=== PATIENT | female | born 1965 | race Caucasian/White ===

== ENCOUNTER 2021-12-02 08:16 | Outpatient (REF) | payer MEDICARE, OTHER, SELFPAY ==
--- NOTE | ~2021-12-02 | XR_ITS ---
EXAMINATION: BILATERAL HIP X-RAY CLINICAL INFORMATION: Pain COMPARISON: None TECHNIQUE: 2 views of each hip FINDINGS: Right: Bone alignment is normal. No fracture or dislocation is seen. The joint space is normal. Soft tissues are normal. Left: Bone alignment is normal. No fracture or dislocation is seen. The joint space is normal. There is an osteophyte projecting off the of the left greater trochanter. XR/XR hips SORAYA min 3V IMPRESSION: Left greater trochanter osteophyte otherwise unremarkable exam. EXAMINATION: Lumbar spine x-ray CLINICAL INFORMATION: Low back pain COMPARISON: None. TECHNIQUE: 5 views of the lumbar spine including bilateral oblique views FINDINGS: There may be a transitional vertebral body segment or lumbarization of S1. Bone alignment is normal. No fracture or dislocation is seen. There is multilevel degenerative spondylosis. There is degenerative disc disease at L4-L5. There is multilevel facet arthritis. No pars defect is seen. IMPRESSION: Multilevel degenerative changes.
--- NOTE | ~2021-12-02 | XR_ITS ---
EXAMINATION: BILATERAL HIP X-RAY CLINICAL INFORMATION: Pain COMPARISON: None TECHNIQUE: 2 views of each hip FINDINGS: Right: Bone alignment is normal. No fracture or dislocation is seen. The joint space is normal. Soft tissues are normal. Left: Bone alignment is normal. No fracture or dislocation is seen. The joint space is normal. There is an osteophyte projecting off the of the left greater trochanter. XR/XR lumbar spine 4V min IMPRESSION: Left greater trochanter osteophyte otherwise unremarkable exam. EXAMINATION: Lumbar spine x-ray CLINICAL INFORMATION: Low back pain COMPARISON: None. TECHNIQUE: 5 views of the lumbar spine including bilateral oblique views FINDINGS: There may be a transitional vertebral body segment or lumbarization of S1. Bone alignment is normal. No fracture or dislocation is seen. There is multilevel degenerative spondylosis. There is degenerative disc disease at L4-L5. There is multilevel facet arthritis. No pars defect is seen. IMPRESSION: Multilevel degenerative changes.
--- NOTE | ~2021-12-02 | CT_ITS ---
EXAMINATION: CT HEAD WITHOUT CONTRAST CLINICAL INFORMATION: Visual disturbance. History of head trauma. COMPARISON: No relevant prior imaging. TECHNIQUE: Contiguous axial imaging was performed from the skull base to vertex without intravenous administration of contrast. This CT examination was performed using dose optimization techniques as appropriate, variously including the following: *Automated exposure control *Adjustment of mA and/or kV according to patient size (this includes techniques or standardized protocols for targeted exams where dose is matched to indication/reason for exam; i.e. extremities or head) *Use of iterative reconstruction technique DLP: 912 mGy-cm FINDINGS: There is no acute intracranial hemorrhage or abnormal extra-axial collection. No intracranial mass effect or midline shift. Lateral and third ventricles are normal. No hydrocephalus. Cordoba-white matter differentiation is preserved and there is no evidence of acute territorial infarct. The calvarium and skull base are intact. Mastoid air cells and middle ear cavities are well aerated. There is a retention cyst within the alveolar recess of the right maxillary sinus. Otherwise no active paranasal sinus disease. Globes and orbits are grossly symmetric. CT/CT head/brain wo con IMPRESSION: Unremarkable CT scan of the head. No evidence of acute territorial infarct or hemorrhage.
== END 2021-12-02 08:17 | disposition home or self-care (01) ==
LOC: HO.CT 08:16
PROVIDERS: PCP Internal Medicine; Visit Provider Nurse Practitioner Family
DX: M54.50 Low back pain, unspecified (principal); M25.551 Pain in right hip; H53.9 Unspecified visual disturbance
CPT/HCPCS: 70450; 72110; 73522

== ENCOUNTER 2021-12-14 05:59 | Outpatient (REF) | payer MEDICARE, SELFPAY ==
[2021-12-14 06:16] LABS: MANUAL DIFF FLAG NO
[2021-12-14 07:25] LABS: Basophils Percent Auto 0.2 % (0-2); Hematocrit 49.9 % (37.0-47.0); Hemoglobin 16.2 g/dl (12.0-16.0); Imm Gran Abs Auto 0.03 X10*3/uL (0.00-0.03); Imm Gran Pct Auto 0.6 % (0.0-0.4); Lymphocytes Absolute Auto 0.8 X10*3/uL (1.2-4.9); Lymphocytes Percent Auto 16.3 % (20-40); Mean Corpuscular HGB Conc 32.5 g/dl (31.0-35.0); Mean Corpuscular Hemoglobin 29.1 pg (27.0-33.0); Mean Corpuscular Volume 89.6 fL (80.0-98.0); Mean Platelet Volume 9.2 fL (9.4-12.3); Monocytes Absolute Auto 0.4 X10*3/uL (0.1-1.2); Monocytes Percent Auto 6.9 % (2-11); Neutrophils Absolute Auto 3.8 x10*3/uL (2.0-8.3); Platelet Count 201 X10*3/uL (160-400); Red Blood Count 5.57 X10*6/uL (4.20-5.50)
[2021-12-14 07:49] LABS: Alanine Aminotransferase 31 U/L (0-31); Albumin Level 4.3 g/dL (3.5-5.0); Alkaline Phosphatase 117 U/L (39-117); Anion Gap 12 (12-20); Aspartate Amino Transferase 24 U/L (5-31); Bilirubin Total 0.3 mg/dL (0.0-1.0); Blood Urea Nitrogen 14 mg/dL (9-16); Calcium 9.3 mg/dL (8.4-10.2); Carbon Dioxide 29 mmol/L (22-29); Chloride 106 mmol/L (96-108); Cholesterol 199 mg/dL; Estimated Glomerular Filt Rate > 60; Glucose Fasting 99 mg/dL (60-99); HDL Cholesterol 38 mg/dL; LDL Cholesterol Calculated 107 mg/dl; Potassium 4.3 mmol/L (3.3-5.1); Sodium 143 mmol/L (135-145); Triglycerides 273 mg/dL
[2021-12-14 08:11] LABS: TSH reflex Free T4 1.11 uIU/mL (0.32-4.0); Vitamin D 25-OH Total 36.3 ng/mL (>30)
[2021-12-14 09:03] LABS: Folate 17.4 ng/mL (> or = 4.0); Vitamin B12 677 pg/mL (200-900)
== END 2021-12-14 06:00 | disposition home or self-care (01) ==
LOC: HO.LAB 05:59
PROVIDERS: PCP Internal Medicine; Visit Provider Nurse Practitioner Family
DX: Z13.220 Encounter for screening for lipoid disorders (principal); Z13.1 Encounter for screening for diabetes mellitus; E03.9 Hypothyroidism, unspecified; Z76.89 Persons encountering health services in other specified circumstances
CPT/HCPCS: 36415; 80053; 80061; 82306; 82607; 82746; 84443; 85025

== ENCOUNTER 2022-02-15 10:04 | Outpatient (REF) | payer MEDICARE, SELFPAY ==
--- NOTE | ~2022-02-15 | MM_ITS ---
EXAMINATION: MM SCREENING DIGITAL BREAST TOMOSYNTHESIS, BILATERAL CLINICAL INFORMATION: Screening. Asymptomatic. Prior [facility] mammography currently unavailable. Prior history benign left breast biopsies. The lifetime risk of breast cancer based on the Tyrer-Cuzick Model is 5%. COMPARISON: None. TECHNIQUE: Digital breast tomosynthesis is performed in both the craniocaudal and mediolateral oblique views along with computer-aided detection (CAD). Synthesized 2D images are generated from the tomosynthesis. FINDINGS: There are scattered areas of fibroglandular density (ACR BI-RADS breast composition Category b). There is biopsy clip marker posterior left breast along the posterior nipple line. Surgical clips are also present central lower left breast. There are bilateral nipple piercings. There is no significant mass or architectural abnormality. Left breast has small smooth circumscribed nodularity central 3:00 position mid depth likely fibrocystic changes. Right breast has intramammary node mid 3:00 position. The axilla and skin contours are unremarkable. Radiology department staff will attempt to retrieve prior [facility] mammography to allow for comparison in an addendum report. MM/MM tomosynthesis screening BI IMPRESSION: No mammographic evidence of malignancy. ASSESSMENT: BI-RADS 0: Incomplete - Need Additional Imaging Evaluation RECOMMENDATION: -Radiology department staff will attempt to retrieve outside prior exam(s) to allow for comparison in an addendum report. This patient's information was entered into a reminder system with a target due date for their next mammogram.
== END 2022-02-15 10:05 | disposition home or self-care (01) ==
LOC: HO.MAMMO 10:04
PROVIDERS: PCP Internal Medicine; Visit Provider Internal Medicine
DX: Z12.31 Encounter for screening mammogram for malignant neoplasm of breast (principal)
CPT/HCPCS: 77063; 77067

== ENCOUNTER 2022-03-02 06:02 | Outpatient (REF) | payer MEDICARE, MEDICAID, SELFPAY ==
--- NOTE | ~2022-03-02 | FL_ITS ---
EXAMINATION: XR FLUOROSCOPY WITH IMAGES CLINICAL INFORMATION: M53.3 - Sacrococcygeal disorders, not elsewhere classified COMPARISON: Lumbar radiographs 12/02/2021 TECHNIQUE: Fluoroscopy performed by Dr. Yuan Talley. Fluoroscopy time: 0.3 minutes. Cumulative Dose: 11.1 mGy. DAP: 3.03 Gy-cm2. Images: 2. FINDINGS: Spinal needles overlies mid to lower bilateral SI joints. There is contrast in the periarticular soft tissues with probable early intra-articular contrast. No vasculature communication appreciated. FL/FL guidance in treatment room IMPRESSION: Fluoroscopy for pain management procedure.
== END 2022-03-02 06:03 | disposition home or self-care (01) ==
LOC: CF 06:02
PROVIDERS: Visit Provider Anesthesiology
DX: M53.3 Sacrococcygeal disorders, not elsewhere classified (principal); M47.816 Spondylosis without myelopathy or radiculopathy, lumbar region; M51.37 Other intervertebral disc degeneration, lumbosacral region; M70.61 Trochanteric bursitis, right hip; M62.838 Other muscle spasm
CPT/HCPCS: 27096; J3300

== ENCOUNTER → 2022-04-05 09:17 | Outpatient (BNVA) | payer MEDICARE, SELFPAY | PROVIDERS: PCP Internal Medicine; Visit Provider Nurse Practitioner Family | DX: M62.838 Other muscle spasm (principal); E66.01 Morbid (severe) obesity due to excess calories; M70.61 Trochanteric bursitis, right hip; M53.3 Sacrococcygeal disorders, not elsewhere classified; M51.37 Other intervertebral disc degeneration, lumbosacral region; Z68.41 Body mass index [BMI] 40.0-44.9, adult | CPT/HCPCS: 99212 ==

== ENCOUNTER 2022-05-18 06:23 | Outpatient (REF) | payer MEDICARE, MEDICAID, SELFPAY | END 2022-05-18 06:24 | disposition home or self-care (01) | LOC: CF 06:23 | PROVIDERS: Visit Provider Anesthesiology | DX: M70.62 Trochanteric bursitis, left hip (principal); M51.37 Other intervertebral disc degeneration, lumbosacral region; M53.3 Sacrococcygeal disorders, not elsewhere classified; M62.838 Other muscle spasm; E66.01 Morbid (severe) obesity due to excess calories; Z68.41 Body mass index [BMI] 40.0-44.9, adult | CPT/HCPCS: 20610; 99212; J2795; J3301 ==

== ENCOUNTER 2022-06-07 10:51 | Outpatient (REF) | payer MEDICARE, MEDICAID, SELFPAY ==
--- NOTE | ~2022-06-07 | US_ITS ---
EXAMINATION: US PELVIS CLINICAL INFORMATION: Postmenopausal bleeding COMPARISON: None TECHNIQUE: Ultrasound of the pelvis is performed using both transabdominal and transvaginal transducers along with Doppler. Transvaginal imaging is performed due to inadequate visualization transabdominally. FINDINGS: Uterus: The uterus is anteverted, anteflexed and measures 7.7 x 4.2 x 5.3 cm The double wall endometrial thickness is 0.6 cm. The uterus is smooth in contour and has normal myometrial echogenicity. No visible fibroid. Adnexa: Both ovaries are visualized. There is normal color flow to the adnexa. There is no ovarian torsion. There is no pelvic ascites or fluid collection. Right ovary measures 2.1 x 1.8 x 1.5 cm and volume 3.0 mL. It appears unremarkable. Left ovary measures 2.7 x 1.5 x 2.1 cm and volume 4.5 mL. It appears unremarkable. There is no free fluid in the cul-de-sac. US/US pelvic and transvaginal IMPRESSION: 1. Unremarkable uterus and ovaries. 2. There is no free fluid in the cul-de-sac.
== END 2022-06-07 10:52 | disposition home or self-care (01) ==
LOC: HO.US 10:51
PROVIDERS: PCP Internal Medicine; Visit Provider Nurse Practitioner Family
DX: N95.0 Postmenopausal bleeding (principal)
CPT/HCPCS: 76830; 76856

== ENCOUNTER → 2022-06-11 08:00 | Outpatient (BNVA) | payer MEDICARE, SELFPAY | PROVIDERS: PCP Internal Medicine; Visit Provider Internal Medicine | DX: M53.3 Sacrococcygeal disorders, not elsewhere classified (principal); G58.8 Other specified mononeuropathies | CPT/HCPCS: 99212 ==

== ENCOUNTER 2022-06-23 07:57 | Outpatient (REF) | payer MEDICARE, MEDICAID, SELFPAY ==
[2022-06-25 17:58] LABS: HPV mRNA E6/E7 rflx Not Detected (Not Detected)
== END 2022-06-23 07:58 | disposition home or self-care (01) ==
LOC: HO.LNP 07:57
PROVIDERS: PCP Internal Medicine; Visit Provider Obstetrics & Gynecology
DX: Z12.4 Encounter for screening for malignant neoplasm of cervix (principal); Z11.51 Encounter for screening for human papillomavirus (HPV); N95.0 Postmenopausal bleeding
CPT/HCPCS: 58100; 87624; 88142; 88305; 99202

== ENCOUNTER → 2022-06-30 12:30 | Outpatient (BNVA) | payer MEDICARE, SELFPAY | PROVIDERS: PCP Internal Medicine; Visit Provider Obstetrics & Gynecology | DX: N95.0 Postmenopausal bleeding (principal) | CPT/HCPCS: 99212 ==

== ENCOUNTER 2022-09-22 10:17 | Day surgery (SDC) | payer MEDICARE, MEDICAID, SELFPAY ==
--- NOTE | ~2022-09-22 | FL_ITS ---
EXAMINATION: XR FLUOROSCOPY WITH IMAGES CLINICAL INFORMATION: Cluneal nerve pns trial COMPARISON: Radiographs lumbar spine and bilateral hip 12/02/2021 TECHNIQUE: Fluoroscopy Supervised By: Dr. Brennen Dietz. Fluoroscopy Time: 0.6 minutes. Cumulative Dose: 21.6 mGy. DAP: 5.09 Gycm2. Images: 4. FINDINGS: There are electrodes seen overlying the bilateral sacral wings, oriented superior to inferior. There is no kinking or defect. Degenerative changes again seen lumbosacral spine. FL/FL guidance in OR IMPRESSION: Fluoroscopy for pain management procedures.
[2022-09-22 10:29] VITALS: BMI 41.8
--- NOTE | 2022-09-22 11:21 | MHC.SHP ---
Pre-Procedural Eval Section A Date of Service: 09/22/22 The patient is an INPATIENT: No Changes since office visit: Yes Patient answered all questions The History & Physical has been completed within 30 days and I have reviewed it.: Yes Section B Chief Complaint: Other specified mononeuropathies Relevant Social History: None Present Medications: see Short Stay Collaborative assessment Medical History: No relevant PMH History of Previous Operations: No relevant previous surgery Allergies: Allergies Allergy/AdvReac Type Severity Reaction Status Date / Time Penicillins Allergy Severe Anaphylaxis Verified 09/22/22 10:39 progesterone AdvReac Severe Depression Verified 09/22/22 10:39 fentanyl Allergy Severe Anaphylaxis Uncoded 06/30/22 12:43 Review of Systems Sugical H&P ROS: Negative: Constitution, Cardiovascular and Respiratory Exam Surgical H&P Exam: Normal: HEENT, Normal: Heart and Normal: Lungs Plan Diagnosis/Plan: Unchanged I have reviewed the history and physical and performed a pertinent physical examination on my patient. No changes have occurred unless specified. Proceed with bilateral medial cluneal nerve PNS trial for medial cluneal neuropathy. Time Spent With Patient Time: Total time managing care of this patient today ____ minutes.
[2022-09-22 12:58] VITALS: BP 114/69; PULSE 90; RESP 18; TEMP 36.4; O2SAT 94
[2022-09-22 13:01] LABS: MRSA Nasal PCR NEGATIVE (Negative); SA Nasal PCR NEGATIVE (Negative)
--- NOTE | 2022-09-22 13:13 | P.BOP_ITS ---
Brief Operative Note Date of Service: 09/22/22 Pre-op diagnosis: Cluneal neuropathy Post-op diagnosis: same Procedure: Medial cluneal nerve stimulation trial Implants: Curonix PNS trial leads Surgeon: Brennen Dietz MD Anesthesia: local Was an Technical Education Teacher used for this Procedure?: No Estimated blood loss (mL): 5 Pathology: none sent Condition: stable Disposition: same day
--- NOTE | 2022-09-22 13:14 | P.OP_ITS ---
Operative Note Operative Note Date of Service: 09/22/22 Narrative: Percutaneous trial of peripheral nerve stimulation of Medial Cluneal Nerves, Bilateral After obtaining written consent, pre-procedure blood pressure and heart rate were stable and recorded in the nursing record. A peripheral IV was started. Antibiotics, cefazolin 2 grams, were given prior to the start of the procedure. The patient was positioned in prone position. The lumbosacral area was widely prepped with chloraprep and draped in sterile fashion. Using fluoroscopy, the needle entry location was estimated on each side of the lumbar area. The skin at the insertion site was anesthetized with 0.5% lidocaine. A 14 gauge coude needle was used as an introducer. The introducer was advanced subcutaneously along the length of the lumbar paraspinal muscles until contact was established with the sacrum. The introducer was then rotated and walked off the edge of the sacrum overlying the medial cluneal nerves. The stylet was removed. The electrode array was passed through the introducer using a tenting approach at a shallow angle. Fluoroscopy was used to confirm appropriate lead position. Stimulation was performed and good coverage was obtained. The leads were secured using ticron sutures, steri-strips and tegaderms. The patient tolerated the procedure well. No complications were encountered. Following the procedure the patient's vital signs were stable. The patient was discharged home in good condition with post-procedural instructions. Time Out: Immediately prior to the procedure, the following was verbally confirmed that there is a signed consent form and that the correct patient, raza nned procedure, site and side are consistent with documentation and that necessary equipment and/or blood products are available prior to the start of the case. Complications: none EBL: <5 cc
== END 2022-09-22 13:31 | disposition home or self-care (01) ==
PROVIDERS: Nurse Practitioner Family; PCP Internal Medicine; Visit Provider Internal Medicine
PROC: (CPT 64555; principal; 2022-09-22 11:30)
DX: G58.8 Other specified mononeuropathies (principal); M53.3 Sacrococcygeal disorders, not elsewhere classified; Z79.899 Other long term (current) drug therapy; Z88.0 Allergy status to penicillin; Z88.8 Allergy status to other drugs, medicaments and biological substances; Z96.653 Presence of artificial knee joint, bilateral; F17.210 Nicotine dependence, cigarettes, uncomplicated
CPT/HCPCS: 64555; 87640; 87641; C1897

== ENCOUNTER → 2022-09-28 09:18 | Outpatient (BNVA) | payer MEDICARE, MEDICAID, SELFPAY | PROVIDERS: PCP Internal Medicine; Visit Provider Nurse Practitioner Family | DX: M25.572 Pain in left ankle and joints of left foot (principal); M53.3 Sacrococcygeal disorders, not elsewhere classified; M46.1 Sacroiliitis, not elsewhere classified; G58.8 Other specified mononeuropathies; Z96.653 Presence of artificial knee joint, bilateral | CPT/HCPCS: 99212 ==

== ENCOUNTER 2022-12-01 10:29 | Day surgery (SDC) | payer MEDICARE, MEDICAID, SELFPAY ==
[2022-11-24 17:08] VITALS: BMI 40.4
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
--- NOTE | ~2022-12-01 | FL_ITS ---
EXAMINATION: XR FLUOROSCOPY WITH IMAGES CLINICAL INFORMATION: Neurostimulator placement COMPARISON: None available. TECHNIQUE: Fluoroscopy Supervised By: Dr. Dietz. Fluoroscopy Time: 0.6 minutes. Cumulative Dose: 14.4 mGy. DAP: 3.01 Gycm2. Images: 4. FINDINGS: Sequential imaging demonstrates electrodes projecting over the paraspinal location bilaterally from the L1 through sacral iliac joint levels. FL/FL guidance in OR IMPRESSION: Fluoroscopy for pain management procedure.
[2022-12-01 10:53] VITALS: BP 127/84; PULSE 81; RESP 16; TEMP 37.4; O2SAT 97
[2022-12-01] MEDS: Lactated Ringers 1,000 ML 100 ML IVCONT (11:17)
--- NOTE | 2022-12-01 13:13 | MHC.SHP ---
Pre-Procedural Eval Section A Date of Service: 12/01/22 The patient is an INPATIENT: No Changes since office visit: Yes Patient answered all questions The History & Physical has been completed within 30 days and I have reviewed it.: Yes Section B Chief Complaint: mononeuropathies,Sacroiliitis, not elsewhere class Relevant Family History (Specify if Yes): No Relevant Social History: Other (specify) Present Medications: see Short Stay Collaborative assessment Medical History: No relevant PMH History of Previous Operations: No relevant previous surgery Allergies: Allergies Allergy/AdvReac Type Severity Reaction Status Date / Time Penicillins Allergy Severe Anaphylaxis Verified 12/01/22 10:51 progesterone AdvReac Severe Depression Verified 12/01/22 10:51 fentanyl Allergy Severe Anaphylaxis Uncoded 12/01/22 10:51 Review of Systems Sugical H&P ROS: Negative: Constitution, Cardiovascular and Respiratory Exam Surgical H&P Exam: Normal: HEENT, Normal: Heart and Normal: Lungs Plan Diagnosis/Plan: Unchanged I have reviewed the history and physical and performed a pertinent physical examination on my patient. No changes have occurred unless specified. Proceed with bilateral medial cluneal PNS implant. Time Spent With Patient Time: Total time managing care of this patient today ____ minutes.
--- NOTE | 2022-12-01 13:14 | PM.OP ---
Brief Operative Note Date of Service: 12/01/22 Pre-op diagnosis: Medial cluneal neuropathy, sacroiliac joint dysfunction Post-op diagnosis: same Procedure: Medial cluneal nerve stimulator implant, bilateral Implants: Curonix wireless PNS system Surgeon: Brennen Dietz MD Anesthesia: MAC Was an Stemhole Borer used for this Procedure?: No Estimated blood loss (mL): 10 Pathology: none sent Condition: stable Disposition: PACU
--- NOTE | 2022-12-01 13:15 | W.PM.OPN ---
Operative Note Operative Note Date of Service: 12/01/22 Narrative: Peripheral nerve stimulator implant for Medial Cluneal Nerves, Bilateral After obtaining written consent, pre-procedure blood pressure and heart rate were stable and recorded in the nursing record. A peripheral IV was started. Antibiotics, Clindamycin 900 mg, were given prior to the start of the procedure. The patient was positioned in prone position and sedated by the electromechanical technologist. The lumbosacral area was widely prepped with chloraprep and draped in sterile fashion. Using fluoroscopy, the needle entry location was estimated on each side of the lumbar area. The skin at the insertion site was anesthetized with a mixture of 0.5% lidocaine and 0.25% ropivacaine.?A 14 gauge coude needle was used as an introducer.?The skin entry site was incised with a stab incision using a 15 blade and the introducer was advanced subcutaneously along the length of the lumbar paraspinal muscles until contact was established with the sacrum on both sides.?The introducer was then rotated and walked off the edge of the sacrum overlying the medial cluneal nerves. The electrode array was passed through the introducer using a tenting approach at a shallow angle. Fluoroscopy was used to confirm appropriate lead position. The rigid stylet was removed and the copper stylet was inserted. Stimulation was performed and good coverage was obtained. A pocket was then created in the midline in the thoracic spine area approximately 1.5 cm from the level of the skin. The skin incision was made with a 15 blade followed by a combination of electrocautery and blunt dissection. The leads were tunneled in a parallel fashion to the pocket site. A single knot was then placed on each of the leads to secure the copper stylet in place. The excess lead beyond the knot was coiled and tied with 0 silk ties. The coiled portion of the lead was then placed in the pocket. The pocket was then irrigated with vancomycin solution. The original Coude insertion sites were then bluntly dissected to place the leads deeper into the tissue. With the leads buried in soft tissue, the overlying skin was closed with a single 0 silk suture. The pocket was closed in a layered fashion using 2-0 Vicryl for fascial closure, followed by 3-0 Vicryl for deep dermal layer and 4-0 Vicryl for skin. All 3 incision sites were dressed with Exofin, steri-strips, gauzeand tegaderms. The patient tolerated the procedure well. No complications were encountered. Following the procedure the patient's vital signs were stable. The patient was discharged home in good condition with post-procedural instructions. Time Out: Immediately prior to the procedure, the following was verbally confirmed that there is a signed consent form and that the correct patient, planned procedure, site and side are consistent with documentation and that necessary equipment and/or blood products are available prior to the start of the case. Complications: none EBL: 10 cc
[2022-12-01 15:48] VITALS: BP 108/56; PULSE 85; RESP 16; TEMP 36.6; O2SAT 90
[2022-12-01 16:03] VITALS: BP 121/72; PULSE 78; RESP 16; O2SAT 92
[2022-12-01 16:18] VITALS: BP 110/60; PULSE 77; RESP 16; TEMP 37.1; O2SAT 95
== END 2022-12-01 16:33 | disposition home or self-care (01) ==
PROVIDERS: PCP Internal Medicine; Visit Provider Internal Medicine
PROC: (CPT 64555; principal; 2022-12-01 12:00)
DX: G58.8 Other specified mononeuropathies (principal); M46.1 Sacroiliitis, not elsewhere classified; M53.3 Sacrococcygeal disorders, not elsewhere classified; M25.572 Pain in left ankle and joints of left foot; F31.81 Bipolar II disorder; F43.10 Post-traumatic stress disorder, unspecified; E03.9 Hypothyroidism, unspecified; Z91.410 Personal history of adult physical and sexual abuse; Z79.899 Other long term (current) drug therapy; Z88.0 Allergy status to penicillin; Z88.8 Allergy status to other drugs, medicaments and biological substances; F17.210 Nicotine dependence, cigarettes, uncomplicated
CPT/HCPCS: 64555 ×2; 87640; 87641; C1713; C1816; J2250; J2795; J3370

== ENCOUNTER 2022-12-07 14:48 | Outpatient (AMB) | payer MEDICARE, MEDICAID, SELFPAY ==
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
[2022-12-07 14:59] VITALS: BP 134/86; PULSE 94; O2SAT 96; BMI 40.6
== END 2022-12-07 15:46 | disposition home or self-care (01) ==
PROVIDERS: PCP Internal Medicine; Visit Provider Nurse Practitioner Family
DX: M53.3 Sacrococcygeal disorders, not elsewhere classified (principal); M46.1 Sacroiliitis, not elsewhere classified; G58.8 Other specified mononeuropathies
CPT/HCPCS: 99213

== ENCOUNTER → 2022-12-07 14:48 | Outpatient (BNVA) | payer MEDICARE, MEDICAID, SELFPAY | PROVIDERS: PCP Internal Medicine; Visit Provider Nurse Practitioner Family | DX: M53.3 Sacrococcygeal disorders, not elsewhere classified (principal); M46.1 Sacroiliitis, not elsewhere classified; G58.8 Other specified mononeuropathies; Z98.890 Other specified postprocedural states | CPT/HCPCS: 99212 ==

== ENCOUNTER 2022-12-17 11:44 | Outpatient (AMB) | payer MEDICARE, MEDICAID, SELFPAY ==
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
[2022-12-17 11:55] VITALS: BP 134/77; PULSE 80; RESP 14; BMI 27.2
== END 2022-12-17 12:10 | disposition home or self-care (01) ==
PROVIDERS: PCP Internal Medicine; Visit Provider Internal Medicine
DX: M53.3 Sacrococcygeal disorders, not elsewhere classified (principal); G58.8 Other specified mononeuropathies
CPT/HCPCS: 99213

== ENCOUNTER → 2022-12-17 11:44 | Outpatient (BNVA) | payer MEDICARE, MEDICAID, SELFPAY | PROVIDERS: PCP Internal Medicine; Visit Provider Internal Medicine | DX: Z48.89 Encounter for other specified surgical aftercare (principal); M53.3 Sacrococcygeal disorders, not elsewhere classified; G58.8 Other specified mononeuropathies | CPT/HCPCS: 99212 ==

== ENCOUNTER 2023-01-10 06:20 | Outpatient (REF) | payer MEDICARE, MEDICAID, SELFPAY ==
--- NOTE | ~2023-01-10 | XR_ITS ---
EXAMINATION: XR ankle LT min 3V, XR foot LT min 3V CLINICAL INFORMATION: Reason for Exam SPRAIN COMPARISON: None. TECHNIQUE: AP, oblique views of the left ankle AP, oblique and lateral views of the left foot FINDINGS: No acute fracture or dislocation. Ankle mortise is congruent. Talar dome intact. Ossification along the inferior aspect of the medial malleolus is chronic and degenerative in nature related to the attachments of the deltoid ligament complex. Prominent plantar and posterior calcaneal enthesophytes. Associated soft tissue swelling posterior to the calcaneus with calcifications in the expected location of the distal Achilles tendon. Query Achilles tendinosis and/or pump bumps. XR/XR ankle LT min 3V IMPRESSION: * No acute fracture or dislocation. * Soft tissue swelling posterior to the calcaneus with associated calcifications in the expected location of the distal Achilles tendon. Query Achilles tendinosis and/or pump bumps.
--- NOTE | ~2023-01-10 | XR_ITS ---
EXAMINATION: XR ankle LT min 3V, XR foot LT min 3V CLINICAL INFORMATION: Reason for Exam SPRAIN COMPARISON: None. TECHNIQUE: AP, oblique views of the left ankle AP, oblique and lateral views of the left foot FINDINGS: No acute fracture or dislocation. Ankle mortise is congruent. Talar dome intact. Ossification along the inferior aspect of the medial malleolus is chronic and degenerative in nature related to the attachments of the deltoid ligament complex. Prominent plantar and posterior calcaneal enthesophytes. Associated soft tissue swelling posterior to the calcaneus with calcifications in the expected location of the distal Achilles tendon. Query Achilles tendinosis and/or pump bumps. XR/XR foot LT min 3V IMPRESSION: * No acute fracture or dislocation. * Soft tissue swelling posterior to the calcaneus with associated calcifications in the expected location of the distal Achilles tendon. Query Achilles tendinosis and/or pump bumps.
== END 2023-01-10 06:21 | disposition home or self-care (01) ==
LOC: HO.XRAY 06:20
PROVIDERS: Absent Provider Nurse Practitioner Family; PCP Internal Medicine; Visit Provider Nurse Practitioner Primary Care
DX: S93.492A Sprain of other ligament of left ankle, initial encounter (principal); S93.692A Other sprain of left foot, initial encounter
CPT/HCPCS: 73610; 73630

== ENCOUNTER → 2023-01-12 13:26 | Outpatient (BNVA) | payer MEDICARE, MEDICAID, SELFPAY | PROVIDERS: PCP Internal Medicine; Visit Provider Internal Medicine | DX: Z45.1 Encounter for adjustment and management of infusion pump (principal) | CPT/HCPCS: 99211 ==

== ENCOUNTER 2023-01-18 08:16 | Outpatient (AMB) | payer MEDICARE, MEDICAID, SELFPAY ==
[2023-01-18 08:31] VITALS: BP 112/68; PULSE 87; O2SAT 94; BMI 37.8
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
== END 2023-01-18 09:26 | disposition home or self-care (01) ==
PROVIDERS: Visit Provider Nurse Practitioner Family
DX: Z00.00 Encounter for general adult medical examination without abnormal findings (principal); E03.9 Hypothyroidism, unspecified; K22.70 Barrett's esophagus without dysplasia; F17.210 Nicotine dependence, cigarettes, uncomplicated; K21.9 Gastro-esophageal reflux disease without esophagitis; F31.81 Bipolar II disorder; M54.50 Low back pain, unspecified; E78.1 Pure hyperglyceridemia; M25.572 Pain in left ankle and joints of left foot; E66.9 Obesity, unspecified
CPT/HCPCS: 99396

== ENCOUNTER 2023-03-01 08:48 | Outpatient (REF) | payer MEDICARE, MEDICAID, SELFPAY ==
--- NOTE | ~2023-03-01 | MM_ITS ---
EXAMINATION: MM SCREENING DIGITAL BREAST TOMOSYNTHESIS, BILATERAL CLINICAL INFORMATION: Screening. Asymptomatic. COMPARISON: Mammography: This study is compared with prior exams dating back to 2019. TECHNIQUE: Digital breast tomosynthesis is performed in both the craniocaudal and mediolateral oblique views along with computer-aided detection (CAD). Synthesized 2D images are generated from the tomosynthesis. FINDINGS: There are scattered areas of fibroglandular density (ACR BI-RADS breast composition Category b). There are no significant masses, abnormal calcifications, or other abnormalities. The patient has bilateral nipple rings. There are 4 surgical clips in the medial aspect of the left breast. MM/MM tomosynthesis screening BI IMPRESSION: No mammographic evidence of malignancy. ASSESSMENT: BI-RADS BI-RADS 2 - Benign Findings RECOMMENDATION: Routine annual mammography screening. 1 year F/U This examination should not preclude the clinical evaluation of a suspicious palpable abnormality. This patient's information was entered into a reminder system with a target due date for their next mammogram.
== END 2023-03-01 08:49 | disposition home or self-care (01) ==
LOC: HO.MAMMO 08:48
PROVIDERS: PCP Internal Medicine; Visit Provider Internal Medicine
DX: Z12.31 Encounter for screening mammogram for malignant neoplasm of breast (principal)
CPT/HCPCS: 77063; 77067

== ENCOUNTER → 2023-03-01 09:15 | Outpatient (BNV) | payer MEDICARE, MEDICAID, SELFPAY | PROVIDERS: PCP Internal Medicine; Visit Provider Radiology Diagnostic Radiology | DX: Z12.31 Encounter for screening mammogram for malignant neoplasm of breast (principal) | CPT/HCPCS: 77063; 77067 ==

== ENCOUNTER → 2023-06-15 12:56 | Outpatient (BNVA) | payer OTHER, MEDICAID, SELFPAY | PROVIDERS: PCP Internal Medicine; Visit Provider Internal Medicine | DX: Z45.42 Encounter for adjustment and management of neurostimulator (principal) | CPT/HCPCS: 99211 ==

== ENCOUNTER → 2023-06-22 11:26 | Outpatient (BNVA) | payer OTHER, MEDICAID, SELFPAY | PROVIDERS: PCP Internal Medicine; Visit Provider Anesthesiology ==